=== PATIENT | female | born 1945 | race Asian ===

== ENCOUNTER → 2019-09-25 | Day surgery (SDC) | payer MEDICARE, OTHER ==
[~2019-09-25] MED LIST: ALPR0.5T PO; AMLO5TAB4 PO; LIDOCAINE HCL 1% 20ML VIAL (Pyxis) INJ ONE; PRAV10TA35 PO; SODIUM BICARBONATE 4% (2.4MEQ) 5ML VIAL IV ONE
== END | disposition home or self-care (01) ==
LOC: RAD 08:08
PROVIDERS: ATTEND Surgery
DX: D05.92 Unspecified type of carcinoma in situ of left breast (principal); Z79.899 Other long term (current) drug therapy
CPT/HCPCS: 19285; J3490; 19281

== ENCOUNTER 2019-09-27 06:25 | Day surgery (SDC) | payer MEDICARE, OTHER ==
[~2019-09-27] VITALS: Ht 152.4 cm; Wt 55.8 kg
[~2019-09-27 06:25] MED LIST changes: -ALPR0.5T PO; -AMLO5TAB4 PO; +LACTATED RINGERS 1,000 ML IV SCH; -LIDOCAINE HCL 1% 20ML VIAL (Pyxis) INJ ONE; -PRAV10TA35 PO; -SODIUM BICARBONATE 4% (2.4MEQ) 5ML VIAL IV ONE
[2019-09-27] MEDS ORDERED: LACTATED RINGERS 1,000 ML IV SCH (06:30)
[2019-09-27] MEDS ORDERED: BUPIVACAINE HCL 0.5% (5MG/ML) 50ML ONE ×2 (06:44→08:27)
[2019-09-27] MEDS ORDERED: SKIN ADHESIVE 0.7 GM EA TOP ONE (06:44)
[2019-09-27] MEDS ORDERED: METHYLENE BLUE 50 MG/10 ML AMP IV ONE (07:47)
[2019-09-27] MEDS ORDERED: PROPOFOL 200MG/20ML VIAL IV ONE (08:20)
[2019-09-27] MEDS ORDERED: ROCURONIUM BROMIDE 10MG/ML VIAL 5ML IV ONE (08:20)
[2019-09-27] MEDS ORDERED: NEOSTIGMINE METHYLSULFATE 1MG/ML 10 ML VIAL ONE (08:20)
[2019-09-27] MEDS ORDERED: SUCCINYLCHOLINE CHLORIDE 200MG/10ML IV ONE (08:20)
[2019-09-27] MEDS ORDERED: GLYCOPYRROLATE 0.2 MG/ML 2ML VIAL ONE (08:20)
[2019-09-27] MEDS ORDERED: LIDOCAINE HCL/PF 1% 10 MG/ML 5ML VIAL ONE (08:20)
[2019-09-27] MEDS ORDERED: METOCLOPRAMIDE HCL 10MG/2ML VIAL ONE (08:20)
[2019-09-27] MEDS ORDERED: MIDAZOLAM HCL 2 MG/2 ML VIAL ONE (08:20)
[2019-09-27] MEDS ORDERED: ONDANSETRON HCL 4MG/2ML INJ ONE (08:20)
[2019-09-27] MEDS ORDERED: SODIUM CHLORIDE 0.9% 10ML VIAL ONE (08:20)
[2019-09-27] MEDS ORDERED: FENTANYL CITRATE/PF 50MCG/ML 2ML VIAL ONE (08:20)
[2019-09-27] MEDS ORDERED: CEFAZOLIN SODIUM 1000MG/VIAL ONE (08:20)
[2019-09-27] MEDS ORDERED: ALPR0.5T PO (08:49)
[2019-09-27] MEDS ORDERED: PRAV10TA35 PO (08:49)
[2019-09-27] MEDS ORDERED: AMLO5TAB4 PO (08:49)
[2019-09-27] MEDS ORDERED: SODIUM CHLORIDE 0.9% 1,000 ML IV ONE (09:43)
[2019-09-27] MEDS ORDERED: HYDROMORPHONE HCL/PF 2MG/ML CPJ IV PRN (09:45)
[2019-09-27] MEDS ORDERED: ONDANSETRON HCL 4MG/2ML INJ IV PRN (09:45)
[2019-09-27] MEDS ORDERED: MORPHINE SULFATE 2 MG/ML CPJ (NOT FOR IM USE) IV PRN (09:45)
[2019-09-27] MEDS ORDERED: MEPERIDINE HCL/PF 25MG/ML CPJ IV PRN (09:45)
[2019-09-27] MEDS ORDERED: HYDROCODONE/ACETAMINOPHEN 5/325MG TABLET PO NR (11:34)
[2019-09-27 11:42] VITALS: BP 116/70
== END 2019-09-27 11:57 | disposition home or self-care (01) ==
LOC: OR 06:25
PROVIDERS: ATTEND Surgery
DX: D05.82 Other specified type of carcinoma in situ of left breast (principal); I10 Essential (primary) hypertension; E78.00 Pure hypercholesterolemia, unspecified; F41.0 Panic disorder [episodic paroxysmal anxiety]; M17.9 Osteoarthritis of knee, unspecified; M50.30 Other cervical disc degeneration, unspecified cervical region; Z68.24 Body mass index [BMI] 24.0-24.9, adult; Z98.890 Other specified postprocedural states; Z79.899 Other long term (current) drug therapy
CPT/HCPCS: 19301; 71045; 88309; C9728; J0330; J0690; J2250; J2270; J2405; J2704; J2710; J2765; J3010; J3490; Q9968